=== PATIENT | female | born 1955 | race Caucasian/White ===

== ENCOUNTER 2024-01-16 09:05 | Emergency (ER) | payer MEDICARE ==
[2024-01-16 11:07] LABS: BASOPHILS ABSOLUTE AUTO 0.04 K/uL (0.00-0.10); BASOPHILS PERCENT AUTO 0.5 % (0.1-1.3); EOSINOPHILS ABSOLUTE AUTO 0.03 K/uL (0.00-0.40); EOSINOPHILS PERCENT AUTO 0.4 % (0.0-5.4); HEMATOCRIT 42.8 % (34.3-46.0); HEMOGLOBIN 14.8 g/dL (11.2-15.5); IMMATURE GRAN ABSOLUTE AUTO 0.01 K/uL (0.00-0.23); IMMATURE GRAN PERCENT AUTO 0.1 % (0.0-0.7); LYMPHOCYTES ABSOLUTE AUTO 0.75 K/uL (0.8-3.3); LYMPHOCYTES PERCENT AUTO 10.2 % (11.4-47.7); MEAN CORPUSCULAR HEMOGLOBIN 29.9 pg (31.6-35.5); MEAN CORPUSCULAR HGB CONC 34.6 g/dL (31.6-35.5); MEAN CORPUSCULAR VOLUME 86.5 fL (81.4-99.0); MONOCYTES ABSOLUTE AUTO 0.55 K/uL (0.20-0.90); MONOCYTES PERCENT AUTO 7.5 % (3.3-12.6); NEUTROPHILS PERCENT AUTO 81.3 % (40.0-78.1); PLATELET COUNT,PLT 257 K/uL (130-375); RED BLOOD CELL COUNT 4.95 M/uL (3.77-5.24); WHITE BLOOD CELL COUNT,WBC 7.4 K/uL (3.2-11.0)
[2024-01-16 11:28] LABS: A/G RATIO 1.1 (1.2-2.2); ALANINE AMINOTRANSFERASE,ALT 23 U/L (12-78); ALBUMIN 3.8 g/dL (3.4-5.0); ALKALINE PHOSPHATASE 49 U/L (46-116); ANION GAP 12.8 mmol/L (5.0-14.0); ASPARTATE AMNIOTRANSFERASE,AST 18 U/L (15-37); BILIRUBIN TOTAL 0.6 mg/dL (0.2-1.0); BLOOD UREA NITROGEN,BUN 12 mg/dL (7-18); C-REACTIVE PROTEIN 3.02 mg/dL (<0.50); CALCIUM 9.1 mg/dL (8.5-10.1); CARBON DIOXIDE,CO2 23 mmol/L (21-32); CHLORIDE,CL 106 mmol/L (100-108); CREATININE 1.1 mg/dL (0.6-1.0); EST CRCL DRUG DOSING (CG) 37.45 mL/min; ESTIMATED GFR 55 mL/min (>60); GLUCOSE RANDOM 120 mg/dL (74-106); POTASSIUM,K 4.2 mmol/L (3.6-5.2); PROTEIN TOTAL,TP 7.4 g/dL (6.4-8.2); SODIUM,NA 142 mmol/L (140-148)
[2024-01-16] MEDS: Sodium Chloride 0.9% 1,000 ML IV ONE (11:55)
[2024-01-16] MEDS: HYDROmorphone 0.5 MG/0.5 ML Syringe IVPUSH ONE (11:56)
[2024-01-16] MEDS: Sodium Chloride 0.9% 10 ML Syringe FLUSH PRN ×2 (11:56→14:55)
[2024-01-16] MEDS: Sodium Chloride 0.9% 80 ML IV ONE (14:55)
[2024-01-16] MEDS: Iopamidol 755 Mg/ML 100 ML Bottle IV SCH (14:56)
== END 2024-01-16 15:20 | disposition home or self-care (01) ==
LOC: JP.ED 09:05
DX: K57.32 Diverticulitis of large intestine without perforation or abscess without bleeding (principal)
CPT/HCPCS: 36415; 74174; 80053; 83605; 83690; 85025; 86140; 96361; 96374; 99284; J1170; J3490; J7030; Q9967